=== PATIENT | male | born 1940 | race Caucasian/White ===

== ENCOUNTER → 2019-05-05 | Outpatient (CLI) | payer MEDICARE, MEDICAID ==
[~2019-05-05] MED LIST: ATOR1TAB19 PO; BENA5TA PO; CHLO25TA PO; DICL1GEL TD; GENT1SOL16 OP; METO1TAB87 PO; OMEP20TA9 PO; PRESCAP PO; VITA200016 PO
--- NOTE | 2019-05-05 10:52 | REP ---
COMPLETE ABDOMINAL SONOGRAPHY: HISTORY: Thrombocytopenia. Splenomegaly. FINDINGS: Scanning through right upper quadrant of the abdomen demonstrates normal sized thin-walled gallbladder without evidence of stone or polyp. Common bile duct is normal measuring 0.4 cm in greatest diameter. Multiple small hepatic cysts are seen along the edge of the liver, the largest of which measures 0.9 cm in greatest diameter. No pancreatic abnormality is observed. Normal caliber aorta is seen, 2.3 cm AP dimension. No ascites seen. Renal cortical echogenicity pattern is normal and contours are smooth bilaterally. There is no evidence of hydronephrosis or renal mass. The right kidney dimensions are 10.2 x 3.5 x 4.1 cm. Left renal dimensions are 10.8 x 4.1 x 5.6 cm. The spleen is normal in size, 8.9 cm in greatest dimension. It is homogeneous in texture. IMPRESSION: No significant abnormality. Tiny cysts in the liver. Electronically Signed by Marco Antonio Knox MD 05/05/2019 06:35 P
== END ==
LOC: M RAD 08:32
PROVIDERS: ATTEND Internal Medicine Hematology & Oncology
DX: D69.6 Thrombocytopenia, unspecified (principal)

== ENCOUNTER → 2020-06-28 | Outpatient (CLI) | payer MEDICARE, MEDICAID ==
[~2020-06-28] MED LIST changes: +FLOM0.4C39 PO; +GASTROGRAFIN SOLUTION 30ML (Q9963) As Ordered ONE; +ISOVUE-370 76% 100ML VIAL As Ordered ONE
--- NOTE | 2020-06-28 17:15 | REP ---
INDICATION: THROMBOCYTOPENIA. COMPARISON: None TECHNIQUE: Axial contrast-enhanced images from the lung bases to the pubic symphysis using oral and 100 cc Isovue 370 intravenous contrast material. Delayed images of the abdomen obtained along with coronal and sagittal reformations. This CT examination was performed using the following dose reduction techniques: Automated exposure control, adjustment of mA and/or kv according to the patient's size, and the use of iterative reconstruction technique. FINDINGS: Liver demonstrates few scattered benign appearing cysts measuring up to 1.5 cm. Mild fatty infiltration to the liver suggested. Spleen, pancreas, bilateral adrenal glands and kidneys are normal. Evidence for prior cholecystectomy noted. Evaluation of the enteric system is without obstruction or acute inflammatory process. Scattered sigmoid diverticula noted without acute diverticulitis. Pelvis demonstrates normal bladder and age-appropriate prostate/seminal vesicles. No ascites. No free air. No intraperitoneal or retroperitoneal adenopathy. Atherosclerotic changes to the aorta and vasculature noted without aneurysm or dissection. Musculoskeletal structures demonstrate age-related degenerative changes without acute osseous abnormality. IMPRESSION: No acute abdominopelvic pathology appreciated. Benign and nonacute appearing findings including scattered hepatic cysts up to 1.5 cm and evidence for diverticulosis without acute diverticulitis. <Electronically signed by Christiano Rowe > 06/28/20 [id number]
--- NOTE | 2020-06-28 17:17 | REPVR ---
PROCEDURE INFORMATION: Exam: CT Neck With Contrast Exam date and time: 06/28/2020 4:24 PM Age: 80 years old Clinical indication: Other: Thrombocytopenia TECHNIQUE: Imaging protocol: Computed tomography images of the neck with contrast. Radiation optimization: All CT scans at this facility use at least one of these dose optimization techniques: automated exposure control; mA and/or kV adjustment per patient size (includes targeted exams where dose is matched to clinical indication); or iterative reconstruction. Contrast material: ISOVUE 370; Contrast volume: 100 ml; Contrast route: INTRAVENOUS (IV); COMPARISON: No relevant prior studies available. FINDINGS: Nasopharynx: Unremarkable. Oropharynx: Unremarkable. No significant tonsillar enlargement. Hypopharynx: Unremarkable. Larynx: Unremarkable. Normal epiglottis. Retropharyngeal space: Unremarkable. Submandibular/Parotid glands: Normal. Glands are normal in size. Thyroid: Normal. No enlarged or calcified nodules. Lymph nodes: Unremarkable. No lymphadenopathy. Trachea: Visualized trachea is unremarkable. Lungs: Unremarkable as visualized. Bones/joints: Unremarkable. No acute fracture. Soft tissues: Unremarkable. No significant soft tissue swelling. IMPRESSION: No acute findings. Electronically signed by: Mikhail Mireles On 06/28/2020 17:16:43 PM
--- NOTE | 2020-06-28 17:18 | REPVR ---
PROCEDURE INFORMATION: Exam: CT Head With Contrast Exam date and time: 06/28/2020 4:24 PM Age: 80 years old Clinical indication: Other: Thrombocytopenia TECHNIQUE: Imaging protocol: Computed tomography of the head with intravenous contrast. Radiation optimization: All CT scans at this facility use at least one of these dose optimization techniques: automated exposure control; mA and/or kV adjustment per patient size (includes targeted exams where dose is matched to clinical indication); or iterative reconstruction. Contrast material: ISOVUE 370; Contrast volume: 100 ml; Contrast route: INTRAVENOUS (IV); COMPARISON: No relevant prior studies available. FINDINGS: Brain: Unremarkable white matter. No mass effect. No abnormal enhancing lesions. Cerebral ventricles: Unremarkable. No ventriculomegaly. Bones/joints: Unremarkable. No acute fracture. Paranasal sinuses: Visualized sinuses are unremarkable. No fluid levels. Mastoid air cells: Visualized mastoid air cells are well aerated. Soft tissues: Unremarkable. IMPRESSION: Unremarkable postcontrast only study. There are no pre contrast images available. Electronically signed by: Mikhail Mireles On 06/28/2020 17:17:54 PM
--- NOTE | 2020-06-28 17:21 | REP ---
INDICATION: THROMBOCYTOPENIA COMPARISON: None TECHNIQUE: Axial contrast enhanced images from the thoracic inlet to the upper abdomen using 100 ml Isovue 370 intravenous contrast material followed by CT of the abdomen and pelvis. Coronal and sagittal reformations obtained. This CT examination was performed using the following dose reduction techniques: Automated exposure control, adjustment of mA and/or kv according to the patient's size, and use of iterative reconstruction technique. FINDINGS: The bilateral lung hurd are relatively well well aerated and essentially clear. Mild age-related chronic interstitial changes are noted without acute consolidation, suspicious nodule or mass lesion. No pleural effusion. No pneumothorax. Tracheobronchial tree is patent. There appears to be presumed chronic elevation to the right hemidiaphragm. No axillary, hilar, or mediastinal adenopathy. Mediastinum demonstrates minimal atherosclerotic changes to the thoracic aorta and coronary arteries without aortic aneurysm or dissection. Mild cardiomegaly suggested without pericardial effusion. Skeletal structures demonstrate age-related degenerative changes without acute osseous abnormality. IMPRESSION: Normal age-appropriate contrast-enhanced chest CT. No acute mediastinal or pleuroparenchymal process. Mild cardiomegaly suggested. <Electronically signed by Christiano Rowe > 06/28/20 [id number]
== END ==
LOC: M RAD 14:24
PROVIDERS: ATTEND Internal Medicine Hematology & Oncology
DX: D69.6 Thrombocytopenia, unspecified (principal)
CPT/HCPCS: 70460; 70491; 71260; 74177; Q9963; Q9967